=== PATIENT | female | born 1985 | race Caucasian/White ===

== ENCOUNTER → 2018-03-28 | Outpatient (CLI) | payer MEDICAID | LOC: SUN.DIA 09:26 | DX: O24.410 Gestational diabetes mellitus in pregnancy, diet controlled (principal); Z3A.31 31 weeks gestation of pregnancy | CPT/HCPCS: G0108 ==

== ENCOUNTER → 2018-04-11 | Outpatient (CLI) | payer MEDICAID | LOC: SUN.DIA 09:10 | DX: O24.419 Gestational diabetes mellitus in pregnancy, unspecified control (principal); Z3A.34 34 weeks gestation of pregnancy | CPT/HCPCS: G0108 ==

== ENCOUNTER → 2018-05-01 | Outpatient (CLI) | payer MEDICAID | LOC: SUN.DIA 08:51 | DX: O24.419 Gestational diabetes mellitus in pregnancy, unspecified control (principal); Z3A.36 36 weeks gestation of pregnancy | CPT/HCPCS: G0108 ==

== ENCOUNTER 2018-05-23 15:29 | Outpatient (CLI) | payer MEDICAID ==
[~2018-05-23] VITALS: Ht 172.7 cm; Wt 88.6 kg
[2018-05-23 15:44] VITALS: BP 100/71; PULSE 96; TEMP 98.1
[2018-05-23] MEDS ORDERED: PRENATAL 191 CTB PO (15:58)
[2018-05-23] MEDS ORDERED: PROTONIX20 MG PO (15:58)
[2018-05-23 16:03] VITALS: BP 100/71; PULSE 96; TEMP 98.1
== END 2018-05-23 16:15 | disposition home or self-care (01) ==
LOC: LDRO 15:29
DX: O42.92 Full-term premature rupture of membranes, unspecified as to length of time between rupture and onset of labor (principal); Z3A.38 38 weeks gestation of pregnancy

== ENCOUNTER 2018-05-28 13:21 | Inpatient (IN) | payer MEDICAID ==
[2018-05-28] VITALS (12 sets, daily range): BP systolic 101–138; BP diastolic 43–81; PULSE 55–83; TEMP 97–98.2
[~2018-05-28] VITALS: Ht 172.7 cm; Wt 89.1 kg
[~2018-05-28 13:21] MED LIST: PRENATAL 191 CTB PO; PROTONIX20 MG PO
[2018-05-28 14:05] LABS: BASO % 0.3 % (0.0-2.0); EOS # 0.1 (0.0-0.7); EOS % 0.6 % (0-4.0); GRAN # 9.8 (1.4-6.5); GRAN % 81.6 % (42.2-75.2); HEMATOCRIT 32.6 % (37.0-47.0); HEMOGLOBIN 10.8 g/dl (12.5-16.0); LYMPH # 1.4 (1.2-3.4); LYMPH % 11.3 % (20.0-51.0); MEAN CELL VOLUME 92 fl (80.0-100.0); MEAN CORPUSCULAR HEMOGLOBIN 30 pg (27.0-31.0); MEAN CORPUSCULAR HGB CONC 33 g/dl (33.0-37.0); MEAN PLATELET VOLUME 11.9 fl (7.4-10.4); MONO # 0.7 (0.1-0.6); MONO % 5.7 % (1.7-9.3); PLATELET COUNT 180 K/mm3 (130-400); RED BLOOD COUNT 3.56 M/mm3 (4.10-5.30); REDCELL DISTRIBUTION WIDTH-CV 12.9 % (11.5-14.5)
[2018-05-29 02:05] VITALS: BP 107/51; PULSE 52; TEMP 97.6
[2018-05-29 08:40] VITALS: BP 104/55; PULSE 64; TEMP 97.6
[2018-05-29 12:20] VITALS: BP 106/61; PULSE 72; TEMP 97.8
[2018-05-29 16:10] VITALS: BP 119/59; PULSE 71; TEMP 97.5
[2018-05-29 20:30] VITALS: BP 99/58; PULSE 66; TEMP 98
[2018-05-30 08:00] VITALS: BP 116/65; PULSE 76; TEMP 97.6
[2018-05-30] MEDS ORDERED: IBU600 MG PO (12:58)
== END 2018-05-30 14:25 | disposition home or self-care (01) | DRG 775 ==
LOC: LDRO 13:21 → OB 13:30 → LDR 13:30 → OB 17:23
PROVIDERS: Obstetrics & Gynecology
PROC: 10E0XZZ Delivery of Products of Conception, External Approach (ICD-10-PCS; principal; 2018-05-28)
PROC: 0HB9XZZ Excision of Perineum Skin, External Approach (ICD-10-PCS; 2018-05-28)
DX: O24.420 Gestational diabetes mellitus in childbirth, diet controlled (principal); Z3A.39 39 weeks gestation of pregnancy; Z37.0 Single live birth; O62.1 Secondary uterine inertia; O62.2 Other uterine inertia; Z22.330 Carrier of Group B streptococcus; L91.8 Other hypertrophic disorders of the skin; O99.344 Other mental disorders complicating childbirth
CPT/HCPCS: J0690; J2210; J2590; J7120

== ENCOUNTER 2019-04-18 00:46 | Inpatient (IN) | payer MEDICAID ==
[2019-04-18] VITALS (25 sets, daily range): BP systolic 82–139; BP diastolic 29–89; PULSE 52–80; TEMP 97.6–98
[~2019-04-18] VITALS: Ht 172.7 cm; Wt 88.6 kg
[~2019-04-18 00:46] MED LIST changes: +IBU600 MG PO
--- NOTE | 2019-04-18 00:50 | NUR ---
G6L4. 38-2. Ambulatory to LDR 4 with spouse. Clean gown on. EFM and TOCO explained and applied. Pt states she has been cleopatra since 2229 tonight. reports irregular contractions but states she feels like they are getting more consistent. Pt also states she has very quick labors. Denies LOF or vaginal bleeding. Reports good movement. SVE 5-6/70/-2. Plan of care explained to pt and spouse. 0100: at nurses station and updated on pts status. See physican notification. 0115: IV started and labs obtained via IV site. LR bolus infusing and Ancef started at this time per orders.
--- NOTE | 2019-04-18 01:45 | NUR ---
0145- REPORT RECEIVED, CARE ASSUMED. PT SITTING UP IN BED BREATHING THROUGH CONTRACTIONS. 0155- CONSENTS SIGNED, QUESTIONS ANSWERED. 0215- PT DENIES NEEDS AT THIS TIME, WILL CALL OUT IF SHE FEELS SHE NEEDS CHECKED. 0300- PT REPORTS INCREASED PAIN WITH CONTRACTIONS AND WISHES TO BE CHECKED. 0305- SVE BY THIS NURSE .
[2019-04-18 02:07] LABS: BASO # 0.1 (0.0-0.2); BASO % 0.4 % (0.0-2.0); EOS # 0.2 (0.0-0.7); EOS % 1.7 % (0-4.0); GRAN # 8.1 (1.4-6.5); GRAN % 70.9 % (42.2-75.2); HEMOGLOBIN 10.2 g/dl (12.5-16.0); LYMPH # 2.1 (1.2-3.4); LYMPH % 18.3 % (20.0-51.0); MEAN CELL VOLUME 90 fl (80.0-100.0); MEAN CORPUSCULAR HEMOGLOBIN 29 pg (27.0-31.0); MEAN CORPUSCULAR HGB CONC 32 g/dl (33.0-37.0); MEAN PLATELET VOLUME 11.4 fl (7.4-10.4); MONO # 0.9 (0.1-0.6); MONO % 7.8 % (1.7-9.3); PLATELET COUNT 176 K/mm3 (130-400); RED BLOOD COUNT 3.52 M/mm3 (4.10-5.30)
[2019-04-18 02:08] LABS: HEMATOCRIT 31.5 % (37.0-47.0)
--- NOTE | 2019-04-18 04:00 | NUR ---
0400- PT STATES SHE IS FEELING MORE PRESSURE. SVE BY THIS NURSE 0. PT COPING WELL WITH LABOR AT THIS TIME. 0427- PT CALLS OUT WITH URGE TO PUSH. SVE BY THIS NURSE WITH BULGING BAG OF WATER. 0430- DR HERNANDEZ CALLED TO BEDSIDE DUE TO PT FEELING PUSHY. 0438-AROM OF CLEAR FLUID BY DR HERNANDEZ, SVE BY DR HERNANDEZ -/0. 0442- PT BEGINS SPONTANEOUS UNCOACHED PUSHING WHEN SHE FEELS THE URGE. DR HERNANDEZ STATES BABY IS OP POSITION. 0500- PT CONTINUES TO PUSH WHEN SHE FEELS THE URGE. 0512- DR HERNANDEZ DISCUSSES WITH PT THE OPTION OF STARTING SOME PITOCIN TO INCREASE STRENGTH AND FREQUENCY OF CONTRACTIONS, PT QUESTIONS ANSWERWED. PT AGREES TO PITOCIN AT THIS TIME AND CONTINUES TO PUSH WHEN SHE FEELS THE URGE. 0534- PT STILL NOT MAKING MUCH PROGRESS AND DR HERNANDEZ STATES SHE STILL HAS A LIP OF CERVIX. DR HERNANDEZ DISCUSSES TRYING DIFFERENT PUSHING POSITION OR LABORING DOWN. PT DECIDES TO LABOR DOWN AND IS ASSISTED TO LEFT LATERAL POSITION. PT NOT VERY COOPERATIVE WITH SUGGESTIONS FOR POSITIONING AND WISHES TO JUST STAY IN LEFT LATERAL. PT ALSO DESIRES PITOCIN TO BE TURNED OFF DUE TO HER DISCOMFORT. PITOCIN TURNED OFF AT 0545. 0555- PT CONTINUES TO LABOR DOWN. DR HERNANDEZ AT BEDSIDE DISCUSSING PROGRESS AND OPTIONS. SVE BY DR HERNANDEZ STILL /+1. DR HERNANDEZ DISCUSSES HEART DECELS WITH MOTHER. O2 PER MASK GIVEN, LR BOLUS STARTED, PT POSITIONED IN RIGHT TILT. 06-DR HERNANDEZ AT BEDSIDE AND DISCUSSES WITH PT PAIN RELIEF OPTIONS. PT STATES SHE REFUSES TO PUSH WITHOUT PAIN MEDICINE. EPIDURAL DISCUSSED AND DR HERNANDEZ ANSWERS QUESTIONS. 0605- HAYDEE WITH ANESTHESIA CALLED FOR EPIDURAL. 0607- PT STATES SHE IS IN ALOT OF PAIN AND ASKS IF SHE CAN JUST BE TAKEN TO THE OR FOR A C/S. DR HERNANDEZ DISCUSSES RISKS OF C/S AND POTENTIAL FOR C/S IF PT UNABLE TO PUSH BABY OUT OR DISTRESS. ENCOURAGES PT TO TRY EPIDURAL FIRST. PT AGREEABLE. 0609- SVE BY DR HERNANDEZ UNCHANGED. PT TEARFUL. 0610- PT STATES SHE IS GOING TO PUSH, DR HERNANDEZ GOWNS. PT PUSHES SPONTANEOUSLY X2 AND DELIVERS VIABLE MALE, VIGOROUS, TO MOTHER'S ABDOMEN. 616- SPONTANEOUS DELIVERY OF PLACENTA, EXAMINED BY DR HERNANDEZ, PITOCIN STARTED. 619- NO REPAIR, PERICARE PROVIDED. ICEPACK TO PERINEUM. FEET DOWN FROM FOOTPLATES AND PT POSITIONED FOR COMFORT. RECOVERY STARTED.
--- NOTE | 2019-04-18 07:55 | NUR ---
Patient sits up on edge of bed to dangle feet, ambulatory to bathroom to void, pericare done, new gown/underwear/ice pack on. Patient ambulatory to room and oriented to new room. Plan of care discussed.
[2019-04-19 03:02] VITALS: BP 101/57; PULSE 76
[2019-04-19 08:40] VITALS: BP 109/71; PULSE 72; TEMP 97.6
[2019-04-19 09:07] LABS: HEMATOCRIT 31.5 % (37.0-47.0); HEMOGLOBIN 9.9 g/dl (12.5-16.0)
[2019-04-19] MEDS ORDERED: MOTRIN 800800 MG/TAB PO (09:19)
--- NOTE | 2019-04-19 12:00 | NUR ---
Discharge instructions given, pt verbalized understanding. no further questions noted. bands matched and hugs tag removed.
== END 2019-04-19 12:30 | disposition home or self-care (01) | DRG 807 ==
LOC: LDRO 00:46 → LDR 01:03 → OB 08:27
PROVIDERS: Obstetrics & Gynecology; ADMIT Obstetrics & Gynecology
PROC: 10E0XZZ Delivery of Products of Conception, External Approach (ICD-10-PCS; principal; 2019-04-18)
DX: O99.824 Streptococcus B carrier state complicating childbirth (principal); Z37.0 Single live birth; O99.613 Diseases of the digestive system complicating pregnancy, third trimester; K21.9 Gastro-esophageal reflux disease without esophagitis; O69.1XX0 Labor and delivery complicated by cord around neck, with compression, not applicable or unspecified; O32.2XX0 Maternal care for transverse and oblique lie, not applicable or unspecified; Z3A.38 38 weeks gestation of pregnancy
CPT/HCPCS: J0690; J2590; J7120